=== PATIENT | male | born 1985 | race Two or more races ===

== ENCOUNTER → 2017-10-13 | Emergency (ER) | payer OTHER ==
[~2017-10-13] VITALS: Ht 175.3 cm; Wt 78.9 kg
[~2017-10-13] MED LIST: LISINOPRIL40 MG; NORVASC5 MG
== END | disposition left against medical advice (07) ==
LOC: ER 17:47
DX: Z53.20 Procedure and treatment not carried out because of patient's decision for unspecified reasons (principal)